=== PATIENT | male | born 1965 | race African-American/Black ===

== ENCOUNTER 2017-06-23 06:10 | Emergency (ER) | payer SELFPAY ==
[~2017-06-23] VITALS: Ht 170.2 cm; Wt 98.4 kg
[2017-06-23] MEDS ORDERED: LABETALOL 20 MG/4 ML DISP.SYRIN. IVP ONE (07:00)
[2017-06-23 07:04] LABS: BASO # 0.1 x10^3/uL (0.0-0.2); BASO % 1 % (0-3); EOS % 4 % (0-3); HEMATOCRIT 40.8 % (39.0-53.0); HEMOGLOBIN 13.5 g/dL (13.0-17.5); LYMPH # 1.6 x10^3/uL (1.0-4.8); LYMPH % 31 % (24-48); MEAN CORPUSCULAR HEMOGLOBIN 28 pg (25-35); MEAN CORPUSCULAR HGB CONC 33 g/dL (31-37); MEAN CORPUSCULAR VOLUME 83 fL (79-100); MONO % 9 % (0-9); NEUT % 54 % (31-73); PLATELET COUNT 334 x10^3/uL (140-400); RED BLOOD COUNT 4.93 x10^6/uL (4.30-5.70); RED CELL DISTRIBUTION WIDTH 15.7 % (11.5-14.5); WHITE BLOOD COUNT 5.1 x10^3/uL (4.0-11.0)
[2017-06-23] MEDS ORDERED: HYDR25TA9 PO (07:07)
[2017-06-23 07:08] LABS: CALCIUM 9.1 mg/dL (8.5-10.1); GFR 95.7
--- NOTE | 2017-06-23 07:10 | PHYS DOC ---
Past Medical History Past Medical History: Hypertension Alcohol Use: Occasionally Additional Information: "on my days off"; couple times a week Drug Use: None Adult General Chief Complaint Chief Complaint: DIZZY/LIGHT HEADED HPI HPI 52-year-old male presenting today to the emergency department with intermittent dizziness and lightheadedness when he stands up. He reports shortness of breath yesterday. His dizziness is been going on for the past 2 days. Currently he is not dizzy. Currently he is entirely asymptomatic. He has a history of high blood pressure however does not take his blood pressure medications. He denies vision changes, unilateral weakness, slurred speech, or facial droop. He denies chest pain abdominal pain nausea vomiting. He denies blood in his stools. He also complains of pain in the neck that is nearly absent currently but comes and goes over the past 7-10 days. With his pain he has associated intermittent numbness in his right hand. Review of systems is negative for fevers chills cough headache. All other review of systems is negative unless otherwise noted in history of present illness. ED course: 52-year-old male presenting to the emergency department today with generalized dizziness for the past 2 days. Currently he is completely asymptomatic. Of note his triage blood pressure was very elevated. Chest x-ray and blood work obtained. IV labetalol given for his blood pressure. EKG reviewed by myself shows sinus rhythm with a regular rate. [place] is leftward. ST segments show repolarization abnormality likely secondary to left ventricular hypertrophy. T-wave inversions in the lateral leads nonspecific repolarization. Labs unremarkable. Patient's blood pressure came down to about 180 systolic. On reexamination he remains asymptomatic. I prescribed the patient hydrochlorothiazide to initiate treatment for hypertension follow-up with his primary care physician. The patient was then discharged home in stable condition to follow up with their primary care physician over the next 2-3 days. They were to return if their symptoms worsened or if they were concerned for any reason. [id number] discharge instructions and return precautions were given. Patient's questions were answered to their satisfaction. Patient is comfortable plan. Review of Systems Review of Systems SEE ABOVE. Current Medications Current Medications Current Medications Medications (Trade) Dose Ordered Sig/Claudia Start Time Stop Time Status Last Admin Dose Admin Hydrochlorothiazide (Hydrodiuril) 25 mg 1X ONCE 06/23/17 07:15 06/23/17 07:16 DC 06/23/17 07:15 25 MG Hydrochlorothiazide (Microzide) 25 mg 1X ONCE 06/23/17 07:15 06/23/17 07:16 Cancel Labetalol HCl (Normodyne) 20 mg 1X ONCE 06/23/17 07:00 06/23/17 07:01 DC 06/23/17 06:59 20 MG Allergies Allergies Allergies Coded Allergies Type Severity Reaction Last Updated Verified No Known Drug Allergies 06/23/17 No Physical Exam Physical Exam SEE ABOVE Constitutional: Well developed, well nourished, no acute distress, non-toxic appearance. HENT: Normocephalic, atraumatic, bilateral external ears normal, oropharynx moist, no oral exudates, nose normal. [] Eyes: PERRLA, EOMI, conjunctiva normal, no discharge. Neck: Normal range of motion, no tenderness, supple, no stridor. [] Cardiovascular:Heart rate regular rhythm, no murmur Lungs & Thorax: Bilateral breath sounds clear to auscultation. no crackles on examination. Abdomen: Bowel sounds normal, soft, no tenderness, no masses, no pulsatile masses. Skin: Warm, dry, no erythema, no rash. [] Back: No tenderness, no CVA tenderness. Extremities: No tenderness, no cyanosis, no clubbing, ROM intact, no edema. [] Neurologic: Alert and oriented X 3, normal motor function, normal sensory function, no focal deficits noted. Psychologic: Affect normal, judgement normal, mood normal. [] Current Patient Data Vital Signs Vital Signs Date Time Temp Pulse Resp B/P (MAP) Pulse Ox O2 Delivery O2 Flow Rate FiO2 06/23/17 07:15 65 20 184/112 (136) 98 Room Air 06/23/17 06:21 98.5 98.5 Lab Values Laboratory Tests Test 06/23/17 06:30 06/23/17 06:32 White Blood Count 5.1 x10^3/uL (4.0-11.0) Red Blood Count 4.93 x10^6/uL (4.30-5.70) Hemoglobin 13.5 g/dL (13.0-17.5) Hematocrit 40.8 % (39.0-53.0) Mean Corpuscular Volume 83 fL (79-100) Mean Corpuscular Hemoglobin 28 pg (25-35) Mean Corpuscular Hemoglobin Concent 33 g/dL (31-37) Red Cell Distribution Width 15.7 % (11.5-14.5) H Platelet Count 334 x10^3/uL (140-400) Neutrophils (%) (Auto) 54 % (31-73) Lymphocytes (%) (Auto) 31 % (24-48) Monocytes (%) (Auto) 9 % (0-9) Eosinophils (%) (Auto) 4 % (0-3) H Basophils (%) (Auto) 1 % (0-3) Neutrophils # (Auto) 2.7 x10^3uL (1.8-7.7) Lymphocytes # (Auto) 1.6 x10^3/uL (1.0-4.8) Monocytes # (Auto) 0.5 x10^3/uL (0.0-1.1) Eosinophils # (Auto) 0.2 x10^3/uL (0.0-0.7) Basophils # (Auto) 0.1 x10^3/uL (0.0-0.2) Sodium Level 141 mmol/L (136-145) Potassium Level 4.0 mmol/L (3.5-5.1) Chloride Level 103 mmol/L (98-107) Carbon Dioxide Level 31 mmol/L (21-32) Anion Gap 7 (6-14) Blood Urea Nitrogen 15 mg/dL (8-26) Creatinine 1.0 mg/dL (0.7-1.3) Estimated GFR (Cockcroft-Gault) 95.7 Glucose Level 103 mg/dL (70-99) H Calcium Level 9.1 mg/dL (8.5-10.1) Troponin I Quantitative 0.030 ng/mL (0.000-0.055) Glucose (Fingerstick) 95 mg/dL (70-99) Laboratory Tests 06/23/17 06:30 Laboratory Tests 06/23/17 06:30 EKG EKG [] Radiology/Procedures Radiology/Procedures [] Course & Med Decision Making Course & Med Decision Making Pertinent Labs and Imaging studies reviewed. (See chart for details) [] Dragon Disclaimer Dragon Disclaimer This electronic medical record was generated, in whole or in part, using a voice recognition dictation system. Departure Departure Impression: Primary Impression: Dizziness Additional Impressions: Shortness of breath Hypertension Disposition: HOME, SELF-CARE Condition: STABLE Referrals: NO PCP (PCP) KEVIN MAR MD Patient Instructions: Dizziness Additional Instructions: Thank you for allowing us to participate in your care today. Followup with your primary care physician in 3 days if your symptoms do not improve. Call your Primary Doctor tomorrow and inform them of your visit today. If you do not have a primary care provider you can ask for a list of our primary care providers. Return to the emergency department you have any new or concerning findings. This should be evaluated by the primary care physician and any necessary consulting services for continued management within a few days after discharge. Return to emergency room if you have any new or concerning symptoms including but not limited to fever, chills, nausea, vomiting, intractable pain, any new rashes, chest pain, shortness of air, uncontrolled bleeding, difficulty breathing, and/or vision loss. Scripts Hydrochlorothiazide (HYDROCHLOROTHIAZIDE TABLET ) 25 Mg Tablet 1 TAB PO DAILY, #10 TAB 0 Refills Prov: SARAH ARIAS MD 06/23/17 Problem Qualifiers SARAH ARIAS MD Jun 23, 2017 07:10
[2017-06-23] MEDS ORDERED: hydroCHLOROthiazide 25 MG TABLET PO ONE (07:15)
[2017-06-23] MEDS ORDERED: hydroCHLOROthiazide 12.5 MG CAPSULE PO ONE (07:15)
[2017-06-23 07:30] VITALS: BP 186/112
--- NOTE | 2017-06-23 07:53 | RAD ---
Examination: 2 views of the chest History: History of dizziness, shortness of breath Comparison: None available Findings: The cardiomediastinal silhouette grossly appears unremarkable. Mild prominent appearing perihilar bronchovascular markings likely prominent pulmonary arterial branches. Minimal right lung base airspace opacity likely atelectasis or infiltrate. Impression: Minimal right lung base airspace opacity likely atelectasis or infiltrate.
--- NOTE | 2017-06-23 08:30 | EKG ---
[facility] [address] [place] [address] Test Date: 2017-06-23 Test Time: 06:24:37 Pat Name: ALEXANDRA TRAN Department: Room: Gender: M Car Inspector: : 1965 Requested By: SARAH ARIAS Order Number: [id number] Reading MD: Measurements Intervals [place] Rate: 76 P: 56 AL: 174 QRS: 32 QRSD: 96 T: -151 QT: 402 QTc: 457 Interpretive Statements SINUS RHYTHM LEFT ATRIAL ABNORMALITY LVH WITH REPOLARIZATION ABNORMALITY ABNORMAL ECG RI6.01 No previous ECG available for comparison
== END 2017-06-23 07:38 | disposition home or self-care (01) ==
LOC: ER 06:10
DX: R42 Dizziness and giddiness (principal); R06.02 Shortness of breath; I10 Essential (primary) hypertension; M54.2 Cervicalgia; R20.0 Anesthesia of skin
CPT/HCPCS: 36415; 71020; 80048; 82962; 84484; 85025; 93005; 96374; 99285; J3490

== ENCOUNTER 2019-08-13 01:01 | Emergency (ER) | payer BC ==
[~2019-08-13] VITALS: Ht 170.2 cm; Wt 98.4 kg
[~2019-08-13 01:01] MED LIST: HYDR-2145 PO
[2019-08-13] MEDS ORDERED: MIDAZOLAM 100mg/100ml NS BAG 100 ML IV PRN (01:30)
[2019-08-13] MEDS ORDERED: IPRATRPIUM/ALBUTEROL 0.5/2.5MG 3 ML NEBU. ONE (01:48)
[2019-08-13] MEDS ORDERED: predniSONE 10 MG TABLET PO ONE (02:00)
[2019-08-13] MEDS ORDERED: NOREPINEPHRIN 8MG/250ML PREMIX 250 ML IV PRN (02:00)
[2019-08-13] MEDS ORDERED: IPRATRPIUM/ALBUTEROL 0.5/2.5MG 3 ML NEBU. NEB ONE (02:00)
[2019-08-13] MEDS ORDERED: cloNIDine HCL 0.1 MG TABLET PO ONE ×2 (02:30→04:00)
--- NOTE | 2019-08-13 02:33 | RAD ---
CHEST PA LATERAL CLINICAL INDICATION: Cough and shortness of breath COMPARISON: None FINDINGS: Heart is normal in size. Mild interstitial opacities without focal consolidation. No pneumothorax or pleural effusion. Visualized bony thorax within normal limits. IMPRESSION: Findings of mild atypical/viral infection. Electronically signed by: Ori Oliveira DO (08/13/2019 2:30 AM) [facility]
[2019-08-13] MEDS ORDERED: METH4TAB2 PO (03:08)
[2019-08-13] MEDS ORDERED: BENZ100C PO (03:08)
[2019-08-13] MEDS ORDERED: AMOX1TAB61 PO (03:08)
[2019-08-13] MEDS ORDERED: ALBU2.5V8 IH (03:08)
--- NOTE | 2019-08-13 03:09 | PHYS DOC ---
Past Medical History Past Medical History: Hypertension Alcohol Use: Occasionally Drug Use: None Adult General Chief Complaint Chief Complaint: COUGH HPI HPI Patient is a 54 year old male who presents with complaining of cough. Patient complaining of cough with shortness of breath during episodes of cough for the last 5 days that getting gradually getting worse. Patient states he taking Mucinex and sometimes has brownish. Patient complaining of back and bilateral chest wall pain during episodes of cough without fever and chills, nausea, vomiting, diarrhea or constipation, urinary symptom. Patient had sick contacts at home. Patient states he stopped taking his blood pressure medication for the last 5 days because of taking Mucinex. Review of Systems Review of Systems Constitutional: Denies fever or chills [] Eyes: Denies change in visual acuity, redness, or eye pain [] HENT: Denies nasal congestion or sore throat [] Respiratory: Reports cough and shortness of breath Cardiovascular: No additional information not addressed in HPI [] GI: Denies abdominal pain, nausea, vomiting, bloody stools or diarrhea [] : Denies dysuria or hematuria [] Musculoskeletal: Denies back pain or joint pain [] Integument: Denies rash or skin lesions [] Neurologic: Denies headache, focal weakness or sensory changes [] Endocrine: Denies polyuria or polydipsia [] All other systems were reviewed and found to be within normal limits, except as documented in this note. Current Medications Current Medications Current Medications Medications (Trade) Dose Ordered Sig/Claudia Start Time Stop Time Status Last Admin Dose Admin Albuterol/ Ipratropium (Duoneb) 3 ml STK-MED ONCE 08/13/19 01:48 08/13/19 01:48 DC Clonidine HCl (Catapres) 0.2 mg 1X ONCE 08/13/19 04:00 08/13/19 04:01 08/13/19 03:20 0.2 MG Midazolam HCl 100 ml @ 5 mls/hr CONT PRN 08/13/19 01:30 Cancel Norepinephrine Bitartrate 250 ml @ 18.375 mls/ hr CONT PRN 08/13/19 02:00 Cancel Prednisone (Prednisone) 50 mg 1X ONCE 08/13/19 02:00 08/13/19 02:01 DC 08/13/19 02:30 50 MG Allergies Allergies Allergies Coded Allergies Type Severity Reaction Last Updated Verified No Known Drug Allergies 06/23/17 No Physical Exam Physical Exam Constitutional: Well developed, well nourished, mild distress, non-toxic appearance. [] HENT: Normocephalic, atraumatic, bilateral external ears normal, oropharynx moist, no oral exudates, nose normal. [] Eyes: PERRLA, EOMI, conjunctiva normal, no discharge. [] Neck: Normal range of motion, no tenderness, supple, no stridor. [] Cardiovascular:Heart rate regular rhythm, no murmur [] Lungs & Thorax: Wheezing without respiratory distress. Abdomen: Bowel sounds normal, soft, no tenderness, no masses, no pulsatile masses. [] Skin: Warm, dry, no erythema, no rash. [] Back: No tenderness, no CVA tenderness. [] Extremities: No tenderness, no cyanosis, no clubbing, ROM intact, no edema. [] Neurologic: Alert and oriented X 3, normal motor function, normal sensory function, no focal deficits noted. [] Psychologic: Affect normal, judgement normal, mood normal. [] Current Patient Data Vital Signs Vital Signs Date Time Temp Pulse Resp B/P (MAP) Pulse Ox O2 Delivery O2 Flow Rate FiO2 08/13/19 03:20 76 208/103 08/13/19 02:45 97 Room Air 08/13/19 01:06 98.1 16 98.1 EKG EKG [] Radiology/Procedures Radiology/Procedures [][facility] [address] [place] [address] IMAGING REPORT Signed PATIENT: ALEXANDRA TRAN LACCOUNT: [id number] : 1965 LOCATION: ER AGE: 54 SEX: M EXAM STATUS: REG ER ORD. PHYSICIAN: YOSELIN VIRAMONTES MD REASON: cough and shortness of breath PROCEDURE: CHEST PA & LATERAL CHEST PA LATERAL CLINICAL INDICATION: Cough and shortness of breath COMPARISON: None FINDINGS: Heart is normal in size. Mild interstitial opacities without focal consolidation. No pneumothorax or pleural effusion. Visualized bony thorax within normal limits. IMPRESSION: Findings of mild atypical/viral infection. Electronically signed by: Ori Reynolds DO (08/13/2019 2:30 AM) [id number] DICTATED and SIGNED BY: ORI REYNOLDS DO DATE: 08/13/19229 Course & Med Decision Making Course & Med Decision Making Pertinent Imaging studies reviewed. (See chart for details) Evaluation of patient in ER showed 54-year-old male patient presented to ER with complaining of cough for 5 days. Patient had blood pressure of 230/123 at arrival to ER because of not taking his blood pressure medication for 5 days due to taking Mucinex. Patient treated with DuoNeb and prednisone incarcerated and felt better. X-ray did not show infiltration. Patient supposed to take 6 different blood pressure medications. Patient treated with clonidine and blood pressure gradually decreased to 182/102. Patient was advised to take his blood pressure medication as directed. Plan discharge patient home with diagnosis of acute bronchitis and hypertensive urgency. Dragon Disclaimer Dragon Disclaimer This electronic medical record was generated, in whole or in part, using a voice recognition dictation system. Departure Departure Impression: Primary Impression: Acute bronchitis Additional Impression: Hypertensive urgency Disposition: HOME, SELF-CARE (at 0310) Condition: IMPROVED Referrals: NO PCP (PCP) Patient Instructions: Acute Bronchitis, Managing Your High Blood Pressure Additional Instructions: Drink plenty of liquids Follow-up with your primary care physician in 3-5 days Return to ER if not getting better Continue your home blood pressure medication Scripts Benzonatate (TESSALON PERLE) 100 Mg Capsule 1 CAP PO TID for cough, #21 CAP Prov: YOSELIN VIRAMONTES MD 08/13/19 Albuterol Sulfate (PROAIR HFA INHALER) 8.5 Gm Hfa.aer.ad 2 PUFF IH PRN Q4-6HRS PRN for wheezing for 21 Days, #1 INHALER 0 Refills Prov: YOSELIN VIRAMONTES MD 08/13/19 Methylprednisolone (MEDROL) 4 Mg Tab.ds.pk 1 PKG PO UD for inflammation, #1 PKG Prov: YOSELIN VIRAMONTES MD 08/13/19 Amoxicillin/Potassium Clav (AUGMENTIN 875-125 TABLET) 1 Each Tablet 1 TAB PO Q12HR, #20 TAB Prov: YOSELIN VIRAMONTES MD 08/13/19 Problem Qualifiers Primary Impression: Acute bronchitis Bronchitis organism: unspecified organism Qualified Codes: J20.9 - Acute bronchitis, unspecified YOSELIN VIRAMONTES MD Aug 13, 2019 03:09
[2019-08-13 03:30] VITALS: BP 192/103
== END 2019-08-13 03:40 | disposition home or self-care (01) ==
LOC: ER 01:01
DX: J20.9 Acute bronchitis, unspecified (principal); I16.0 Hypertensive urgency
CPT/HCPCS: 71046; 94640; 99284; J7512; J7620